=== PATIENT | male | born 1985 | race Caucasian/White ===

== ENCOUNTER 2018-01-01 09:59 | Emergency (ER) | payer OTHER ==
[~2018-01-01] VITALS: Ht 182.9 cm; Wt 98.2 kg
[2018-01-01 10:10] VITALS: BP 125/80
[2018-01-01] MEDS ORDERED: [UNRECOGNIZED DRUG - OTHER] (10:35)
== END 2018-01-01 11:47 | disposition home or self-care (01) ==
LOC: ED 10:50
DX: M79.622 Pain in left upper arm (principal); I88.9 Nonspecific lymphadenitis, unspecified
CPT/HCPCS: 99284